=== PATIENT | male | born 1945 | race Hispanic/Latino ===

== ENCOUNTER 2019-03-23 02:37 | Emergency (ER) | payer OTHER ==
[~2019-03-23] VITALS: Ht 172.7 cm; Wt 111.6 kg
[~2019-03-23 02:37] MED LIST: ASPIRIN ENTERI325 MG PO; ATORVASTATIN CA40 MG PO; BENZONATATE100 MG PO; DIAZEPAM5 MG PO; DOXYCYCLINE MO100 M1 PO; ESCITALOPRAM OX10 MG PO; HYDROCHLOROTH12.5 MG PO; LEVAQUIN750 MG PO; LEVOCETIRIZINE D5 MG PO; LISINOPRIL10 MG; LISINOPRIL5 MG PO; METOPROLOL SUCC25 MG PO; METOPROLOL TART25 MG; MIRALAX17 GM PO; MUCINEX DM ER1 EACH PO; NORCO 5-325 TA1 EACH PO; PEPCID40 MG PO; PLAVIX75 MG PO; PREDNISONE20 MG PO
[2019-03-23] MEDS ORDERED: SODIUM CHLORIDE 0.9% 1000ML 1,000 ML IV SCH (02:45)
[2019-03-23 03:47] LABS: BILIRUBIN,URINE NEGATIVE (NEGATIVE); CLARITY,URINE CLEAR (CLEAR); COLOR,URINE YELLOW (YELLOW); KETONES,URINE 1+ (NEGATIVE); LEUKOCYTE ESTERASE ,URINE NEGATIVE (NEGATIVE); NITRITE,URINE NEGATIVE (NEGATIVE); PROTEIN,URINE DIPSTICK TRACE (NEGATIVE); URINE UROBILINOGEN 0.2 mg/dL (0.2 - 1)
[2019-03-23 03:51] LABS: HEMATOCRIT 43.8 % (38.2-49.6); HEMOGLOBIN 14.8 g/dL (14.0-18.0); MEAN CORPUSCULAR HEMOGLOBIN 29.5 pg (28-32); MEAN CORPUSCULAR VOLUME 87.3 fL (81-99); RED BLOOD COUNT 5.02 x10e6/uL (4.3-5.7)
[2019-03-23 03:52] LABS: BASOPHILS % 0.1 % (0.0-1.0); LYMPHOCYTES # (AUTO) 0.2 (1.0-3.2); LYMPHOCYTES % 2.6 % (18.0-39.1); MEAN CORPUSCULAR HGB CONC 33.8 g/dL (31-35); MONOCYTES # (AUTO) 0.3 (0.2-0.8); MONOCYTES % 3.1 % (4.4-11.3); NEUTROPHILS # (AUTO) 8.2 (2.1-6.9); NEUTROPHILS % 93.9 % (38.7-80.0); PLATELET COUNT 204 x10e3/uL (140-360); RED CELL DISTRIBUTION WIDTH 13.6 % (11.7-14.4)
[2019-03-23 03:58] LABS: BACTERIA,URINE MANY /HPF; EPITHELIAL CELLS,URINE FEW /LPF; MUCUS,URINE MANY (RARE)
[2019-03-23 04:44] LABS: ANION GAP 18.2 mmol/L (8-16); BLOOD UREA NITROGEN 23 mg/dL (7-26); BUN/CREATININE RATIO 21 (6-25); CARBON DIOXIDE 23 mmol/L (22-29); CHLORIDE 100 mmol/L (98-107); CREATININE, SERUM 1.07 mg/dL (0.72-1.25); EST GLOMERULAR FILTRATION RATE > 60 ML/MIN (60-); POTASSIUM 4.2 mmol/L (3.5-5.1); SODIUM 137 mmol/L (136-145)
[2019-03-23 04:45] LABS: ALANINE AMINOTRANSFERASE 17 IU/L (0-55); ALBUMIN 3.7 g/dL (3.5-5.0); ALBUMIN/GLOBULIN RATIO 1.2 (0.8-2.0); ALKALINE PHOSPHATASE 83 IU/L (40-150); CREATINE KINASE 100 IU/L (30-200); GLUCOSE 181 mg/dL (74-118)
[2019-03-23 05:00] LABS: AMYLASE 47 U/L (25-125); LIPASE 22 U/L (8-78)
[2019-03-23] MEDS ORDERED: IOPAMIDOL 370 MG/ML 200 ML INFUS..BTL INJ ONE (05:24)
[2019-03-23] MEDS ORDERED: SODIUM CHLORIDE 0.9% 50ML 50 ML ONE (05:25)
--- NOTE | 2019-03-23 05:51 | Diagnostic Imaging Report ---
CT Abdomen And Pelvis with Intravenous Contrast INDICATION: Nausea, vomiting, diarrhea ^ABD PAIN N/V/D ^[id number] ^0500 ^Y TECHNIQUE: Thin collimation axial images obtained from the diaphragm to the level of the pubic symphysis following the uneventful administration of 100 cc of low osmolar, nonionic intravenous contrast. Dose reduction techniques used: Automated exposure control, adjustment of the mAs and/or kVp according to patient size, standardized low-dose protocol, and/or iterative reconstruction technique. RADIATION DOSE: Total DLP: 723.2 mGy*cm Estimated effective dose: (DLP x 0.015 x size factor) mSv CTDIvol has been reviewed. It is below the limits set by the Radiation Protocol Committee (RPC). COMPARISON: None. ABDOMEN FINDINGS: Lung Bases: Bibasilar subsegmental atelectasis or scarring. 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 There is a small hiatal hernia. Liver: Steatosis. No evidence for mass. Gallbladder: Present and appears normal. No biliary ductal dilatation. Pancreas: Normal attenuation without mass or ductal dilatation. Spleen: Normal in size. Solid appearing hypoattenuating mass measures 2.0 x 2.0 cm. Adrenal Glands: No evidence for mass. Kidneys: Right: Normal enhancement. No soft tissue mass. No hydronephrosis. Left: Normal enhancement. Cyst in the interpolar cortex measures 6 mm. Lower pole cyst measures 1.8 x 1.8 cm. No hydronephrosis. Lymph Nodes: No lymphadenopathy. Aorta: Normal in diameter with scattered calcifications PELVIS FINDINGS: Bowel: Stomach: Collapsed but otherwise normal. Small Bowel: Normal in caliber with normal wall thickness. Large Bowel: Normal in caliber with normal wall thickness. Appendix: Contains multiple tiny calcifications or retained barium without mural thickening or periappendiceal inflammation. Bladder: Circumferential mural thickening. Prostate: Measures 5.1 x 6.3 cm. Seminal vesicles: Normal. No free fluid or fluid collection. Bones: Degenerative changes throughout the lower lumbar spine. No compression deformities. No focal osseous lesions. Soft tissues: Small fat-containing umbilical hernia. IMPRESSION: 1. No evidence for bowel obstruction or inflammation. Routine barium or multiple tiny calcifications within the appendix without CT evidence of acute appendicitis. 2. Steatosis. 3. A low attenuating splenic mass has no specific features by CT. Recommend further characterization with dynamic contrast-enhanced CT or MRI. 4. Prostate hypertrophy and bladder wall thickening suggestive of outlet obstruction. Signed by: Dr. Lorenzo Mirmaontes MD on 03/23/2019 5:47 AM
[2019-03-23] MEDS ORDERED: CEFTRIAXONE SOD 1 GM/NS 50 ML 50 ML IV ONE (06:15)
--- NOTE | 2019-03-23 06:23 | NUR ---
265CC OF URINE NOTED ON BLADDER SCAN. MD NOTIFIED AND AWARE.
[2019-03-23] MEDS ORDERED: ONDANSETRON HCL INJ 2MG/ML 2ML 2 MG/ML VIAL IV STA (06:39)
[2019-03-23 06:53] VITALS: BP 149/69
== END 2019-03-23 07:01 | disposition home or self-care (01) ==
LOC: ER 02:37
DX: R10.32 Left lower quadrant pain (principal); R11.2 Nausea with vomiting, unspecified; R19.7 Diarrhea, unspecified; N30.91 Cystitis, unspecified with hematuria; I25.10 Atherosclerotic heart disease of native coronary artery without angina pectoris; E78.00 Pure hypercholesterolemia, unspecified; K21.9 Gastro-esophageal reflux disease without esophagitis; Z95.5 Presence of coronary angioplasty implant and graft
CPT/HCPCS: 36415; 74177; 80053; 81001; 82150; 82550; 82553; 83690; 84484; 85025; 93005; 99285; J0696; J2405; J7030; Q9967

== ENCOUNTER 2020-07-02 20:11 | Emergency (ER) | payer OTHER ==
[~2020-07-02] VITALS: Ht 172.7 cm; Wt 111.6 kg
[2020-07-02] MEDS ORDERED: SODIUM CHLORIDE 0.9% 1000ML 1,000 ML IV STA (20:19)
[2020-07-02 20:59] LABS: BASOPHILS % 0.2 % (0.0-1.0); EOSINOPHILS % 0.1 % (0.0-6.0); HEMATOCRIT 41.6 % (38.2-49.6); HEMOGLOBIN 13.9 g/dL (14.0-18.0); LYMPHOCYTES # (AUTO) 1.2 (1.0-3.2); LYMPHOCYTES % 12.2 % (18.0-39.1); MEAN CORPUSCULAR HEMOGLOBIN 29.1 pg (28-32); MEAN CORPUSCULAR HGB CONC 33.4 g/dL (31-35); MEAN CORPUSCULAR VOLUME 87.2 fL (81-99); MONOCYTES # (AUTO) 0.5 (0.2-0.8); MONOCYTES % 5.7 % (4.4-11.3); NEUTROPHILS # (AUTO) 7.8 (2.1-6.9); NEUTROPHILS % 81.4 % (38.7-80.0); PLATELET COUNT 217 x10e3/uL (140-360); RED BLOOD COUNT 4.77 x10e6/uL (4.3-5.7); RED CELL DISTRIBUTION WIDTH 14.3 % (11.7-14.4)
[2020-07-02 21:17] LABS: ALANINE AMINOTRANSFERASE 16 IU/L (0-55); ALBUMIN 4.1 g/dL (3.5-5.0); ALBUMIN/GLOBULIN RATIO 1.4 (0.8-2.0); ALKALINE PHOSPHATASE 81 IU/L (40-150); ANION GAP 18.6 mmol/L (8-16); BLOOD UREA NITROGEN 12 mg/dL (7-26); BUN/CREATININE RATIO 13 (6-25); CALCIUM 9.4 mg/dL (8.4-10.2); CARBON DIOXIDE 20 mmol/L (22-29); CHLORIDE 99 mmol/L (98-107); CREATINE KINASE 119 IU/L (30-200); CREATININE, SERUM 0.94 mg/dL (0.72-1.25); EST GLOMERULAR FILTRATION RATE > 60 ML/MIN (60-); GLUCOSE 131 mg/dL (74-118); POTASSIUM 3.6 mmol/L (3.5-5.1); SODIUM 134 mmol/L (136-145)
[2020-07-02 21:38] VITALS: BP 164/78
== END 2020-07-02 22:04 | disposition home or self-care (01) ==
LOC: ER 20:17
DX: R55 Syncope and collapse (principal); F43.21 Adjustment disorder with depressed mood; R53.1 Weakness; I10 Essential (primary) hypertension; I48.91 Unspecified atrial fibrillation; E78.00 Pure hypercholesterolemia, unspecified; K21.9 Gastro-esophageal reflux disease without esophagitis; Z95.5 Presence of coronary angioplasty implant and graft
CPT/HCPCS: 36415; 70450; 71045; 72125; 80053; 82550; 82553; 83880; 84484; 85025; 93005; 99284; J7030

== ENCOUNTER 2020-11-12 17:54 | Emergency (ER) | payer OTHER ==
[~2020-11-12] VITALS: Ht 172.7 cm; Wt 97.1 kg
[2020-11-12] MEDS ORDERED: TRAMADOL HCL 50 MG TAB PO NR (19:30)
[2020-11-12] MEDS ORDERED: TRAMADOL HCL 50 MG TAB ONE (19:39)
[2020-11-12] MEDS ORDERED: LIDOCAINE HCL 1% LOCAL INJ 20 ML VIAL ONE (20:48)
[2020-11-12] MEDS ORDERED: CEPHALEXIN500 MG PO (22:44)
[2020-11-12 23:05] VITALS: BP 136/72
== END 2020-11-12 23:05 | disposition home or self-care (01) ==
LOC: FSED 19:20
DX: S51.011A Laceration without foreign body of right elbow, initial encounter (principal); W18.11XA Fall from or off toilet without subsequent striking against object, initial encounter; Y92.019 Unspecified place in single-family (private) house as the place of occurrence of the external cause; S50.01XA Contusion of right elbow, initial encounter; S09.90XA Unspecified injury of head, initial encounter; I10 Essential (primary) hypertension; I48.91 Unspecified atrial fibrillation; I25.10 Atherosclerotic heart disease of native coronary artery without angina pectoris; Z95.5 Presence of coronary angioplasty implant and graft
CPT/HCPCS: 12001; 70450; 72125; 73030; 73060; 73080; 73200; 99284; J2001

== ENCOUNTER 2022-10-07 12:24 | Observation (INO) | payer MEDICARE, OTHER ==
[~2022-10-07] VITALS: Ht 172.7 cm; Wt 97.1 kg
[~2022-10-07 12:24] MED LIST changes: +CEPHALEXIN500 MG PO
[2022-10-07] MEDS ORDERED: SODIUM CHLORIDE 0.9% 1000ML 1,000 ML IV ONE (13:15)
[2022-10-07] MEDS ORDERED: SODIUM CHLORIDE FLUSH 10 ML SYR IV PRN (13:15)
[2022-10-07 13:38] LABS: BASOPHILS % 0.5 % (0.0-1.0); EOSINOPHILS % 0.2 % (0.0-6.0); HEMATOCRIT 41.9 % (38.2-49.6); HEMOGLOBIN 13.9 g/dL (14.0-18.0); LYMPHOCYTES # (AUTO) 1.5 (1.0-3.2); LYMPHOCYTES % 22.9 % (18.0-39.1); MEAN CORPUSCULAR HEMOGLOBIN 28.7 pg (28-32); MEAN CORPUSCULAR HGB CONC 33.2 g/dL (31-35); MEAN CORPUSCULAR VOLUME 86.6 fL (81-99); MONOCYTES # (AUTO) 0.3 (0.2-0.8); MONOCYTES % 5.3 % (4.4-11.3); NEUTROPHILS # (AUTO) 4.5 (2.1-6.9); NEUTROPHILS % 70.8 % (38.7-80.0); PLATELET COUNT 247 x10e3/uL (140-360); RED BLOOD COUNT 4.84 x10e6/uL (4.3-5.7); RED CELL DISTRIBUTION WIDTH 14.1 % (11.7-14.4)
[2022-10-07 13:52] LABS: ALBUMIN 3.9 g/dL (3.5-5.0); ALBUMIN/GLOBULIN RATIO 1.1 (0.8-2.0); CALCIUM 9.5 mg/dL (8.4-10.2)
[2022-10-07] MEDS ORDERED: SODIUM CHLORIDE FLUSH 10 ML SYR INJ PRN (15:00)
[2022-10-07] MEDS ORDERED: ONDANSETRON HCL INJ 2MG/ML 2ML 2 MG/ML VIAL IV PRN (15:00)
[2022-10-07] MEDS ORDERED: ASPIRIN 81 MG CHEW TAB PO ONE (15:00)
[2022-10-07 17:07] VITALS: BP 145/70; PULSE 68; RESP 18; TEMP 98.1; O2SAT 95
[2022-10-07 17:09] VITALS: BP 145/70; PULSE 68; RESP 18; TEMP 98.1; O2SAT 95
[2022-10-07 17:17] VITALS: BP 145/70; PULSE 68; RESP 18; TEMP 98.1; O2SAT 95
[2022-10-07] MEDS ORDERED: XARELTO20 MG PO (17:42)
[2022-10-07] MEDS ORDERED: OMEPRAZOLE40 MG PO (17:42)
[2022-10-07] MEDS ORDERED: ASPIRIN81 MG PO (17:42)
[2022-10-07] MEDS ORDERED: LISINOPRIL40 MG PO (17:42)
[2022-10-07] MEDS ORDERED: XARELTO10 MG PO (17:42)
[2022-10-07 19:49] VITALS: BP 129/82; PULSE 65; RESP 16; TEMP 97.3; O2SAT 98
[2022-10-07 19:51] VITALS: BP 129/82; PULSE 65; RESP 16; TEMP 97.3; O2SAT 98
[2022-10-07 23:04] VITALS: BP 132/79; PULSE 88; RESP 16; TEMP 97.3; O2SAT 97
[2022-10-08 03:55] VITALS: BP 120/78; PULSE 56; RESP 17; TEMP 97.9; O2SAT 99
[2022-10-08 06:07] LABS: BASOPHILS % 0.4 % (0.0-1.0); EOSINOPHILS # (AUTO) 0.1 (0.0-0.4); EOSINOPHILS % 0.9 % (0.0-6.0); HEMATOCRIT 40.1 % (38.2-49.6); HEMOGLOBIN 13.2 g/dL (14.0-18.0); LYMPHOCYTES # (AUTO) 2.4 (1.0-3.2); LYMPHOCYTES % 33.6 % (18.0-39.1); MEAN CORPUSCULAR HEMOGLOBIN 28.7 pg (28-32); MEAN CORPUSCULAR HGB CONC 32.9 g/dL (31-35); MEAN CORPUSCULAR VOLUME 87.2 fL (81-99); MONOCYTES # (AUTO) 0.6 (0.2-0.8); MONOCYTES % 8.7 % (4.4-11.3); NEUTROPHILS # (AUTO) 3.9 (2.1-6.9); PLATELET COUNT 218 x10e3/uL (140-360); RED CELL DISTRIBUTION WIDTH 14.4 % (11.7-14.4)
[2022-10-08 06:42] LABS: ALBUMIN 3.6 g/dL (3.5-5.0); ALBUMIN/GLOBULIN RATIO 1.2 (0.8-2.0); ANION GAP 13.1 mmol/L (8-16); CREATININE, SERUM 0.86 mg/dL (0.72-1.25); POTASSIUM 4.1 mmol/L (3.5-5.1)
[2022-10-08 07:58] VITALS: BP 173/88; PULSE 48; RESP 16; TEMP 97.7; O2SAT 93
[2022-10-08 08:13] VITALS: BP 173/88; PULSE 56; RESP 16; TEMP 97.7; O2SAT 93
[2022-10-08 08:16] VITALS: BP 173/88; PULSE 56; RESP 16; TEMP 97.7; O2SAT 93
== END 2022-10-08 10:31 | disposition home or self-care (01) ==
LOC: ER 12:43 → ERHOLD 14:54 → MED/SURG3 16:58
PROVIDERS: ADMIT Internal Medicine; ATTEND Internal Medicine
DX: R42 Dizziness and giddiness (principal); R55 Syncope and collapse; R61 Generalized hyperhidrosis; I10 Essential (primary) hypertension; I48.91 Unspecified atrial fibrillation; Z79.01 Long term (current) use of anticoagulants; I25.10 Atherosclerotic heart disease of native coronary artery without angina pectoris; I25.2 Old myocardial infarction; Z95.5 Presence of coronary angioplasty implant and graft; E78.5 Hyperlipidemia, unspecified; K21.9 Gastro-esophageal reflux disease without esophagitis; Z11.52 Encounter for screening for COVID-19; Z79.899 Other long term (current) drug therapy; Z79.82 Long term (current) use of aspirin
CPT/HCPCS: 0223U; 36415 ×2; 71046; 80053 ×2; 82550 ×2; 82553 ×2; 83880; 84484 ×2; 85025 ×2; 93005 ×2; 99284; G0378 ×2; J7030